=== PATIENT | male | born 1970 | race African-American/Black ===

== ENCOUNTER 2016-12-06 04:10 | Emergency (ER) | payer OTHER, MEDICAID ==
--- NOTE | 2016-12-06 05:20 | RADIOLOGY REPORT (SQ) ---
EXAM DESCRIPTION: ELBOW RIGHT OVER 2 VIEWS COMPLETED DATE/TIME: 12/06/2016 5:04 am REASON FOR STUDY: FALL COMPARISON: None. NUMBER OF VIEWS: Four views. TECHNIQUE: AP, lateral, and both oblique radiographic images acquired of the right elbow. LIMITATIONS: None. FINDINGS: MINERALIZATION: Normal. BONES: Intra-articular linear lucency consistent with fracture/ defect at the coronoid process of the right ulnar olecranon and/ or radial head seen on one view. Scattered intra-articular fracture frag ments and loose intra-articular bodies measuring up to 1.0 cm of indeterminate age. [id number] osteoarthritis. JOINT: Moderate right elbow effusion. SOFT TISSUES: No soft tissue swelling. No foreign body. OTHER: No other significant finding. IMPRESSION: Possible nondisplaced intra-articular fracture of the radial head or ulnar olecranon as seen on one view. Moderate right elbow effusion. Loose intra-articular fragments/ bodies. TECHNICAL DOCUMENTATION: JOB ID: [id number] [employer]- All Rights Reserved
--- NOTE | 2016-12-06 06:58 | ER Document Report ---
ED General - General Chief Complaint: Arm Injury Stated Complaint: ARM INJURY Time Seen by Provider: 12/06/16 06:12 TRAVEL OUTSIDE OF THE [place] IN LAST 30 DAYS: No - HPI Patient complains to provider of: Right elbow pain Notes: Patient with right elbow pain after following a fall out of the truck. Patient denies any numbness or tingling distal to the injury. Denies any other past medical problems denies fever chills nausea vomiting diarrhea. Pain increased with movement Past Medical History - Social History Smoking Status: Unknown if Ever Smoked Family History: Reviewed & Not Pertinent Patient has suicidal ideation: No Patient has homicidal ideation: No Renal/ Medical History: Denies: Hx Peritoneal Dialysis Review of Systems - Review of Systems Constitutional: No symptoms reported EENT: No symptoms reported Cardiovascular: No symptoms reported Respiratory: No symptoms reported Gastrointestinal: No symptoms reported Genitourinary: No symptoms reported Male Genitourinary: No symptoms reported Musculoskeletal: Other - Elbow pain Skin: No symptoms reported Hematologic/Lymphatic: No symptoms reported Neurological/Psychological: No symptoms reported Physical Exam - Vital signs Vitals: Temp Pulse Resp BP Pulse Ox 97.9 F 95 16 152/88 H 95 12/06/16 04:16 12/06/16 04:16 12/06/16 04:16 12/06/16 04:16 12/06/16 04:16 Interpretation: Normal - General General appearance: Appears well, Alert - HEENT Head: Normocephalic, Atraumatic Eyes: Normal Pupils: PERRL - Respiratory Respiratory status: No respiratory distress Chest status: Nontender Breath sounds: Normal Chest palpation: Normal - Cardiovascular Rhythm: Regular Heart sounds: Normal auscultation Murmur: No - Abdominal Inspection: Normal Distension: No distension Bowel sounds: Normal Tenderness: Nontender Organomegaly: No organomegaly - Back Back: Normal, Nontender - Extremities General upper extremity: Normal inspection, Tender - Minimal effusion with tenderness to palpation of the olecranon process., Normal color, Normal ROM, Normal temperature General lower extremity: Normal inspection, Nontender, Normal color, Normal ROM , Normal temperature, Normal weight bearing. No: Reyes's sign - Neurological Neuro grossly intact: Yes Cognition: Normal Orientation: AAOx4 [place] Coma Scale Eye Opening: Spontaneous [place] Coma Scale Verbal: Oriented [place] Coma Scale Motor: Obeys Commands [place] Coma Scale Total: 15 Speech: Normal Motor strength normal: LUE, RUE, LLE, RLE Sensory: Normal - Psychological Associated symptoms: Normal affect, Normal mood - Skin Skin Temperature: Warm Skin Moisture: Dry Skin Color: Normal Course - Re-evaluation Re-evalutation: 12/06/16 14:55 Bony fragment seen consistent with fracture patient placed in a sugar tong splint follow-up with orthopedics. - Vital Signs Vital signs: Temp Pulse Resp BP Pulse Ox 98.0 F 67 18 141/93 H 96 12/06/16 07:00 12/06/16 07:00 12/06/16 07:00 12/06/16 07:00 12/06/16 07:00 Procedures - Immobilization Right Elbow Immobilizer type: Sugar tong, Sling Performed by: PCT Post-Proc Neuro Vasc Exam: Normal Alignment checked and good: Yes Discharge - Discharge Clinical Impression: Fracture of right elbow Qualifiers: Encounter type: initial encounter Fracture type: closed Qualified Code(s): S42.401A - Unspecified fracture of lower end of right humerus, initial encounter for closed fracture Condition: Good Disposition: HOME, SELF-CARE Instructions: Fractured Radius ([facility]) Additional Instructions: Your seen today for elbow pain in the left side. X-rays consistent with a fracture. We will treat this fracture with a sugar tong splint and sling. Please keep the splint and sling in place until you follow-up with the orthopedic doctor provided. Take medication as prescribed he may also take Motrin for pain control. Return to the ER if any symptoms worsen. Prescriptions: Hydrocodone Bit/Acetaminophen [Hydrocodon-Acetaminophen 5-325] 1 each PO Q6 #30 tablet Forms: Return to Work Referrals: CECE LEACH DO [ACTIVE STAFF] - 12/10/16 (call for appointment)
[2016-12-06 07:00] VITALS: BP 141/93
== END 2016-12-06 07:00 | disposition home or self-care (01) ==
LOC: ER 04:10
PROC: 2W38X1Z Immobilization of Right Upper Extremity using Splint (ICD-10-PCS; principal; 2016-12-06)
DX: S42.421A Displaced comminuted supracondylar fracture without intercondylar fracture of right humerus, initial encounter for closed fracture (principal); M25.521 Pain in right elbow; W17.89XA Other fall from one level to another, initial encounter; Y93.89 Activity, other specified
CPT/HCPCS: 99283